=== PATIENT | male | born 1965 | race African-American/Black ===

== ENCOUNTER 2016-07-13 12:56 | Emergency (ER) | payer OTHER ==
[~2016-07-13] VITALS: Ht 172.7 cm; Wt 122.0 kg
[~2016-07-13 12:56] MED LIST: ALBU0.086 INH; ALBU6.7H INH; DOXY100T PO; HYDR12.56 PO; PRED20 PO; TYLE3 PO; Z.0.NO CURRENT MEDS
[2016-07-13 13:00] VITALS: BP 188/107; PULSE 86; RESP 18; TEMP 98.1; O2SAT 96
[2016-07-13] MEDS ORDERED: LISI20TA3 PO (13:10)
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
[2016-07-13] MEDS ORDERED: ORPHENADRINE INJ 60 MG/2 ML AMP IM ONE (13:45)
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
[2016-07-13] MEDS ORDERED: ROBA750T PO (14:15)
[2016-07-13] MEDS ORDERED: IBUPROFEN 800 MG TAB PO ONE (14:15)
[2016-07-13] MEDS ORDERED: NAPR550T3 PO (14:15)
== END 2016-07-13 14:45 | disposition home or self-care (01) ==
LOC: PHEFT 12:56
DX: S00.83XA Contusion of other part of head, initial encounter (principal); I10 Essential (primary) hypertension; J45.909 Unspecified asthma, uncomplicated; E78.00 Pure hypercholesterolemia, unspecified; G47.30 Sleep apnea, unspecified; V43.52XA Car driver injured in collision with other type car in traffic accident, initial encounter; Y92.481 Parking lot as the place of occurrence of the external cause; Y99.8 Other external cause status
CPT/HCPCS: 70450; 72125; 96372; 99284; J2360; L0150

== ENCOUNTER 2017-03-20 15:30 | Emergency (ER) | payer MEDICAID, OTHER ==
[~2017-03-20] VITALS: Ht 172.7 cm; Wt 126.3 kg
[~2017-03-20 15:30] MED LIST changes: -ALBU0.086 INH; -ALBU6.7H INH; -DOXY100T PO; -HYDR12.56 PO; +LISI20TA3 PO; +NAPR550T3 PO; -PRED20 PO; +ROBA750T PO; -TYLE3 PO; -Z.0.NO CURRENT MEDS
[2017-03-20 15:32] VITALS: BP 154/73; PULSE 112; RESP 24; TEMP 99.2; O2SAT 98
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
[2017-03-20] MEDS ORDERED: oxyCODONE/ACETAMINOPHEN 5 MG/325 MG TAB PO ONE (16:15)
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
[2017-03-20] MEDS ORDERED: LIDOCAINE HCL 1% PF 30 ML VIAL INFIL ONE (16:30)
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
[2017-03-20] MEDS ORDERED: ULTR50TA5 PO (18:03)
== END 2017-03-20 18:42 | disposition home or self-care (01) ==
LOC: NEPD 15:30
DX: S00.93XA Contusion of unspecified part of head, initial encounter (principal); S63.284A Dislocation of proximal interphalangeal joint of right ring finger, initial encounter; V43.52XA Car driver injured in collision with other type car in traffic accident, initial encounter; F17.200 Nicotine dependence, unspecified, uncomplicated; J45.909 Unspecified asthma, uncomplicated; E78.00 Pure hypercholesterolemia, unspecified; I10 Essential (primary) hypertension
CPT/HCPCS: 26770; 70450; 72125; 73130; 73140